=== PATIENT | male | born 1970 | race Caucasian/White ===

== ENCOUNTER → 2018-02-20 | Outpatient (REF) | LOC: ZLAB.WCH 18:43 | DX: Z01.89 Encounter for other specified special examinations (principal) ==

== ENCOUNTER → 2018-09-18 | Outpatient (REF) | LOC: ZLAB.WCH 18:18 | DX: Z01.89 Encounter for other specified special examinations (principal) ==

== ENCOUNTER 2018-10-11 08:32 | Day surgery (SDC) | payer SELFPAY ==
[2018-10-11] VITALS (10 sets, daily range): BP systolic 108–132; BP diastolic 66–85; PULSE 69–86; TEMP 98–98.4
[~2018-10-11] VITALS: Ht 175.4 cm; Wt 113.0 kg
[2018-10-11 09:20] LABS: HEMATOCRIT 43.9 % (42.0-52.0); HEMOGLOBIN 14.8 g/dl (13.5-18.0); MEAN CELL VOLUME 82 fl (80.0-100.0); MEAN CORPUSCULAR HEMOGLOBIN 28 pg (27.0-31.0); MEAN CORPUSCULAR HGB CONC 34 g/dl (33.0-37.0); MEAN PLATELET VOLUME 8.8 fl (7.4-10.4); PLATELET COUNT 195 K/mm3 (130-400); RED BLOOD COUNT 5.38 M/mm3 (4.20-5.60); REDCELL DISTRIBUTION WIDTH-CV 12.3 % (11.5-14.5)
[2018-10-11 09:28] LABS: INR 1.1 (0.8-3.0); PROTHROMBIN TIME 12.2 SECONDS (9.7-12.8)
[2018-10-11 09:30] LABS: CREATININE, serum 0.97 mg/dL (0.66-1.25); POTASSIUM 4.5 mmol/L (3.4-5.0)
[2018-10-11] MEDS ORDERED: ASPIRIN E.C. 8181 MG PO (09:47)
[2018-10-11] MEDS ORDERED: CARAFATE 1GM1 G PO (09:47)
[2018-10-11] MEDS ORDERED: ZANTAC 150MG T150 MG PO (09:48)
[2018-10-11] MEDS ORDERED: GLUCOPHAGE1000 MG PO (09:48)
[2018-10-11] MEDS ORDERED: DIOVAN 160MG160 MG PO (09:50)
[2018-10-11] MEDS ORDERED: LOPRESSOR100 MG PO (09:51)
[2018-10-11] MEDS ORDERED: ZOLOFT 100MG100 MG PO (09:52)
[2018-10-11] MEDS ORDERED: NEXIUM 20MG20 MG PO (09:52)
[2018-10-11] MEDS ORDERED: VITAMIN B COMPL1 SGL PO (09:52)
--- NOTE | 2018-10-11 11:03 | NUR ---
ALL SEDATION MEDICATIONS WILL BE GIVEN DURING PROCEDURE WITH VERBAL ORDER FROM MD PAULINO. SEE MERGE FOR ADMIN TIMES. SEE MERGE FOR RASS/MODERATE SEDATION ASSESSMENTS DURING AND POST PROCEDURE.
--- NOTE | 2018-10-11 11:50 | NUR ---
Pt returned to [facility] 11 per bed s/p heart cath. Pt resting well, family at bedside.
--- NOTE | 2018-10-11 14:10 | NUR ---
Radial band removed from R wrist. Site remains soft C/D/I. Site covered with bandaid and gauze and wrapped with coban. Pt has ambulated and shanice PO intake s n/v.
--- NOTE | 2018-10-11 14:30 | NUR ---
PIV removed from L AC with catheter intact.
--- NOTE | 2018-10-11 14:40 | NUR ---
Pt discharged per w/c by nurse with and mother.
== END 2018-10-11 15:56 | disposition home or self-care (01) ==
LOC: COL.CAR 08:32
PROVIDERS: Internal Medicine Cardiovascular Disease
DX: I25.110 Atherosclerotic heart disease of native coronary artery with unstable angina pectoris (principal); I10 Essential (primary) hypertension; E78.5 Hyperlipidemia, unspecified; E11.9 Type 2 diabetes mellitus without complications; G47.33 Obstructive sleep apnea (adult) (pediatric); K21.9 Gastro-esophageal reflux disease without esophagitis; F41.9 Anxiety disorder, unspecified; G89.29 Other chronic pain; M54.9 Dorsalgia, unspecified; E66.9 Obesity, unspecified; Z68.37 Body mass index [BMI] 37.0-37.9, adult; Z79.84 Long term (current) use of oral hypoglycemic drugs; Z79.82 Long term (current) use of aspirin; Z83.3 Family history of diabetes mellitus; Z82.49 Family history of ischemic heart disease and other diseases of the circulatory system
CPT/HCPCS: J1644; J2250; J3010; Q9967